=== PATIENT | female | born 1970 ===

== ENCOUNTER 2024-01-21 05:36 | Day surgery (SDC) | payer OTHER ==
[2024-01-15 14:22] VITALS: BP 127/74
[~2024-01-21] VITALS: Ht 177.8 cm; Wt 104.3 kg
[~2024-01-21 05:36] MED LIST: DEPAKOTE ER250 MG PO; LYRICA50 MG PO; SYNTHROID100 MCG PO; WELLBUTRIN SR200 MG PO; [UNRECOGNIZED DRUG - OTHER] PO
[2024-01-21] MEDS ORDERED: CEFAZOLIN SODIUM 1,000 MG VIAL ONE (08:40)
[2024-01-21] MEDS ORDERED: CEFAZOLIN SODIUM 1,000 MG VIAL IV ONE (09:30)
== END 2024-01-21 11:50 | disposition home or self-care (01) ==
LOC: CIR.AMB 05:36
PROVIDERS: ATTEND Surgery Surgery of the Hand
DX: M65.841 Other synovitis and tenosynovitis, right hand (principal); Z91.013 Allergy to seafood; E03.9 Hypothyroidism, unspecified; F41.8 Other specified anxiety disorders